=== PATIENT | female | born 1960 | race African-American/Black ===

== ENCOUNTER 2023-12-14 11:31 | Inpatient (IN) | payer MEDICARE, OTHER ==
[~2023-12-14] VITALS: Ht 167.6 cm; Wt 62.1 kg
[2023-12-14] VITALS: BP 178/72; TEMP 98.1; O2SAT 98
[2023-12-14 11:55] LABS: BASOPHILS # (AUTO) 0.1 K/uL (0.0-0.2); BASOPHILS % (AUTO) 1.2 % (0.0-2.0); EOSINOPHILS # (AUTO) 0.4 K/uL (0.0-0.7); EOSINOPHILS % (AUTO) 7.3 % (0.0-6.0); HEMATOCRIT 27 % (33-45); LYMPHOCYTES # (AUTO) 0.9 K/uL (0.8-4.8); LYMPHOCYTES % (AUTO) 17.6 % (20.0-44.0); MEAN CORPUSCULAR HEMOGLOBIN 31 PG (26.0-33.0); MEAN CORPUSCULAR HGB CONC 33 g/dl (31.0-36.0); MEAN CORPUSCULAR VOLUME 94 fL (82-100); MONOCYTES # (AUTO) 0.7 K/uL (0.1-1.30); MONOCYTES % (AUTO) 13.7 % (2.0-12.0); NEUTROPHILS # (AUTO) 3.1 K/uL (1.8-8.9); NEUTROPHILS % (AUTO) 60.2 % (43.0-81.0); PLATELET COUNT (AUTO) 204 K/uL (150-450); RED BLOOD CELL COUNT(AUTO) 2.87 MIL/uL (4.0-5.2); RED CELL DISTRIBUTION WIDTH 17.8 % (11.5-15.0); WHITE BLOOD COUNT (AUTO) 5.1 K/uL (4.3-11.0)
[2023-12-14 12:06] LABS: INR 1.08 (0.91-1.10); PARTIAL THROMBOPLASTIN TIME 32.1 SEC (24.3-34.3); PROTHROMBIN TIME 11.1 SECS (9.2-11.1)
[2023-12-14 12:08] LABS: CALCIUM, SERUM 9.1 mg/dL (8.5-10.1); CARBON DIOXIDE 28 mmol/L (21-32); CHLORIDE 94 mmol/L (98-107); CREATININE 7.3 mg/dL (0.6-1.3); GLUCOSE 138 mg/dL (74-106); POTASSIUM 5.3 mmol/L (3.5-5.1); SODIUM SERUM 132 mmol/L (136-145); UREA NITROGEN, BLOOD 73 mg/dL (7-18)
[2023-12-14] MEDS ORDERED: FOLI0.8T23 PO (12:57)
[2023-12-14] MEDS ORDERED: NIFE-34 PO (12:57)
[2023-12-14] MEDS ORDERED: MAGN400O6 PO (12:57)
[2023-12-14] MEDS ORDERED: HEPA50008 SQ (12:57)
[2023-12-14] MEDS ORDERED: DIVA500T54 PO (12:57)
[2023-12-14] MEDS ORDERED: ACET-868 PO ×2 (12:57)
[2023-12-14] MEDS ORDERED: ALPR0.255 PO (12:57)
[2023-12-14] MEDS ORDERED: BISA10SU11 RC (12:57)
[2023-12-14] MEDS ORDERED: RISP1TAB97 PO (12:57)
[2023-12-14] MEDS ORDERED: CHLO25TA23 PO (12:57)
[2023-12-14] MEDS ORDERED: PANT40TA2 PO (12:57)
[2023-12-14] MEDS ORDERED: NA P133E RC (12:57)
[2023-12-14] MEDS ORDERED: LEVE500T20 PO (12:57)
[2023-12-14] MEDS ORDERED: INSU100I4 SQ (12:57)
[2023-12-14] MEDS ORDERED: CALC-494 PO (12:57)
[2023-12-14] MEDS ORDERED: DOCU100C36 PO (12:57)
[2023-12-14] MEDS ORDERED: POLY17PO4 PO (12:57)
[2023-12-14] MEDS ORDERED: HYDR-4076 PO (12:57)
[2023-12-14] MEDS ORDERED: GLUC1KIT IM (12:57)
[2023-12-14] MEDS ORDERED: MELA3TAB41 PO (12:57)
[2023-12-14] MEDS ORDERED: METO50TA16 PO (12:57)
[2023-12-14] MEDS ORDERED: SEVE800T8 PO (12:57)
[2023-12-14] MEDS ORDERED: Medication Not On Formulary EA (Melatonin 3 MG) PO PRN (13:30)
[2023-12-14] MEDS: hydrALAZINE HCL IV 20 MG VIAL IV ONE (13:30)
[2023-12-14] MEDS ORDERED: ACETAMINOPHEN 325 MG TABLET PO PRN (13:30)
[2023-12-14] MEDS ORDERED: hydrALAZINE HCL IV 20 MG VIAL ONE (13:39)
[2023-12-14] MEDS: BLOOD SUGAR DIAGNOSTIC 1 EACH STRIP IN SCH (16:49)
[2023-12-14] MEDS: hydrALAZINE HCL 25 MG TABLET PO PRN (16:59)
[2023-12-14] MEDS: SEVELAMER CARBONATE 800 MG TABLET PO SCH (18:00)
[2023-12-14 20:00] VITALS: BP 145/68; TEMP 98.4; O2SAT 100
[2023-12-14 20:16] VITALS: BP 145/68; TEMP 98.4; O2SAT 100
[2023-12-14] MEDS: LEVETIRACETAM (250 MG) 250 MG TABLET PO SCH (20:29)
[2023-12-14] MEDS: DOCUSATE SODIUM 100 MG CAPSULE PO SCH (20:29)
[2023-12-14] MEDS: DIVALPROEX SODIUM 500 MG TABLET.DR PO SCH (20:30)
[2023-12-14] MEDS: HEPARIN SODIUM, PORCINE 5000 UNITS/1 ML VIAL IV SCH (20:32)
[2023-12-14] MEDS: HEPARIN SODIUM, PORCINE 5000 UNITS/1 ML VIAL SQ SCH (20:43)
[2023-12-14] MEDS: SIMVASTATIN 20 MG TABLET PO SCH (21:16)
[2023-12-14] MEDS ORDERED: DEXTROSE 50%-WATER 50 ML DISP.SYRIN IV PRN (22:30)
[2023-12-14] MEDS: INSULIN REGULAR, HUMAN 100 UNIT/ML 3 ML VIAL SQ PRN (23:00)
[2023-12-15] VITALS (9 sets, daily range): BP systolic 178–202; BP diastolic 70–85; TEMP 97.5–99; O2SAT 96–100
[2023-12-15] MEDS: BLOOD SUGAR DIAGNOSTIC 1 EACH STRIP IN SCH (06:34)
[2023-12-15 07:29] LABS: INR 1.08 (0.91-1.10); PARTIAL THROMBOPLASTIN TIME 32.9 SEC (24.3-34.3); PROTHROMBIN TIME 11.4 SECS (9.2-11.1)
[2023-12-15 07:45] LABS: BASOPHILS # (AUTO) 0.1 K/uL (0.0-0.2); BASOPHILS % (AUTO) 0.8 % (0.0-2.0); EOSINOPHILS # (AUTO) 0.2 K/uL (0.0-0.7); HEMATOCRIT 28 % (33-45); HEMOGLOBIN 9.1 g/dL (11.5-14.8); LYMPHOCYTES # (AUTO) 0.7 K/uL (0.8-4.8); LYMPHOCYTES % (AUTO) 8.4 % (20.0-44.0); MEAN CORPUSCULAR HEMOGLOBIN 31 PG (26.0-33.0); MEAN CORPUSCULAR HGB CONC 33 g/dl (31.0-36.0); MEAN CORPUSCULAR VOLUME 96 fL (82-100); MONOCYTES # (AUTO) 0.7 K/uL (0.1-1.30); MONOCYTES % (AUTO) 8.9 % (2.0-12.0); NEUTROPHILS # (AUTO) 6.3 K/uL (1.8-8.9); NEUTROPHILS % (AUTO) 79.9 % (43.0-81.0); PLATELET COUNT (AUTO) 232 K/uL (150-450); RED BLOOD CELL COUNT(AUTO) 2.89 MIL/uL (4.0-5.2); RED CELL DISTRIBUTION WIDTH 17.5 % (11.5-15.0); WHITE BLOOD COUNT (AUTO) 7.9 K/uL (4.3-11.0)
[2023-12-15 07:51] LABS: CALCIUM, SERUM 9.5 mg/dL (8.5-10.1); POTASSIUM 5.8 mmol/L (3.5-5.1)
[2023-12-15] MEDS: ASPIRIN 81 MG TAB.CHEW PO SCH (09:24)
[2023-12-15] MEDS: CALCIUM CARBONATE 500 MG TAB.CHEW PO SCH (09:24)
[2023-12-15] MEDS: PANTOPRAZOLE 40 MG TABLET.DR PO SCH (09:24)
[2023-12-15] MEDS: VIT B CMPLX 3/FA/VIT C/BIOTIN 1 TAB TABLET PO SCH (09:24)
[2023-12-15] MEDS ORDERED: LIDOCAINE 1%-EPI 1:200,000 SDV 10 ML VIAL IJ PRN (16:30)
[2023-12-16 00:18] VITALS: BP 192/72; TEMP 98.1; O2SAT 99
[2023-12-16 00:19] VITALS: BP 170/80
[2023-12-16 04:10] VITALS: BP 160/80; TEMP 98.6; O2SAT 99
[2023-12-16 07:43] LABS: BASOPHILS # (AUTO) 0.1 K/uL (0.0-0.2); BASOPHILS % (AUTO) 1.2 % (0.0-2.0); EOSINOPHILS # (AUTO) 0.3 K/uL (0.0-0.7); EOSINOPHILS % (AUTO) 5.3 % (0.0-6.0); HEMATOCRIT 27 % (33-45); HEMOGLOBIN 9.2 g/dL (11.5-14.8); LYMPHOCYTES # (AUTO) 0.7 K/uL (0.8-4.8); LYMPHOCYTES % (AUTO) 13.4 % (20.0-44.0); MEAN CORPUSCULAR HEMOGLOBIN 32 PG (26.0-33.0); MEAN CORPUSCULAR HGB CONC 34 g/dl (31.0-36.0); MEAN CORPUSCULAR VOLUME 96 fL (82-100); MONOCYTES # (AUTO) 0.4 K/uL (0.1-1.30); MONOCYTES % (AUTO) 8.5 % (2.0-12.0); NEUTROPHILS # (AUTO) 3.6 K/uL (1.8-8.9); NEUTROPHILS % (AUTO) 71.6 % (43.0-81.0); PLATELET COUNT (AUTO) 215 K/uL (150-450); RED BLOOD CELL COUNT(AUTO) 2.84 MIL/uL (4.0-5.2); RED CELL DISTRIBUTION WIDTH 17.8 % (11.5-15.0)
[2023-12-16 07:44] LABS: CALCIUM, SERUM 8.7 mg/dL (8.5-10.1)
[2023-12-16 08:12] LABS: HEPATITIS B SURFACE AB Reactive (.)
[2023-12-16 12:00] VITALS: BP 192/84; TEMP 98.8; O2SAT 99
[2023-12-16 16:00] VITALS: BP 173/63; TEMP 98.8; O2SAT 96
[2023-12-16] MEDS ORDERED: HEPARIN INFUSION/D5W 500 ML IV PRN (16:00)
[2023-12-16] MEDS: APIXABAN 2.5 MG TABLET PO SCH (17:02)
[2023-12-16 17:09] LABS: INR 1.13 (0.91-1.10); PROTHROMBIN TIME 11.9 SECS (9.2-11.1)
[2023-12-16 20:00] VITALS: BP 202/84; TEMP 99; O2SAT 96
[2023-12-17] VITALS (7 sets, daily range): BP systolic 179–200; BP diastolic 71–90; TEMP 97.7–98.6; O2SAT 93–96
[2023-12-17 06:52] LABS: BASOPHILS # (AUTO) 0.1 K/uL (0.0-0.2); BASOPHILS % (AUTO) 1.4 % (0.0-2.0); EOSINOPHILS # (AUTO) 0.4 K/uL (0.0-0.7); EOSINOPHILS % (AUTO) 7.1 % (0.0-6.0); HEMATOCRIT 26 % (33-45); HEMOGLOBIN 8.7 g/dL (11.5-14.8); LYMPHOCYTES # (AUTO) 0.9 K/uL (0.8-4.8); LYMPHOCYTES % (AUTO) 17.6 % (20.0-44.0); MEAN CORPUSCULAR HEMOGLOBIN 32 PG (26.0-33.0); MEAN CORPUSCULAR HGB CONC 33 g/dl (31.0-36.0); MEAN CORPUSCULAR VOLUME 96 fL (82-100); MONOCYTES # (AUTO) 0.4 K/uL (0.1-1.30); MONOCYTES % (AUTO) 7.8 % (2.0-12.0); NEUTROPHILS # (AUTO) 3.3 K/uL (1.8-8.9); NEUTROPHILS % (AUTO) 66.1 % (43.0-81.0); PLATELET COUNT (AUTO) 203 K/uL (150-450); RED BLOOD CELL COUNT(AUTO) 2.75 MIL/uL (4.0-5.2); RED CELL DISTRIBUTION WIDTH 18.2 % (11.5-15.0)
[2023-12-17 07:23] LABS: CALCIUM, SERUM 8.7 mg/dL (8.5-10.1); CREATININE 6.4 mg/dL (0.6-1.3); POTASSIUM 5.2 mmol/L (3.5-5.1)
[2023-12-17] MEDS: LORAZEPAM 1 MG TABLET PO STA (19:21)
[2023-12-17] MEDS: METOPROLOL TARTRATE INJ 5 MG/5 ML AMPUL IVP ONE ×2 (20:38→22:05)
[2023-12-18] VITALS (10 sets, daily range): BP systolic 151–199; BP diastolic 60–96; TEMP 97.5–99.1; O2SAT 94–100
[2023-12-18] MEDS: hydrALAZINE HCL IV 20 MG VIAL IV ONE ×3 (03:49→18:46)
[2023-12-18 07:04] LABS: BASOPHILS # (AUTO) 0.1 K/uL (0.0-0.2); EOSINOPHILS # (AUTO) 0.3 K/uL (0.0-0.7); EOSINOPHILS % (AUTO) 6.1 % (0.0-6.0); HEMATOCRIT 27 % (33-45); LYMPHOCYTES # (AUTO) 0.7 K/uL (0.8-4.8); LYMPHOCYTES % (AUTO) 15.1 % (20.0-44.0); MEAN CORPUSCULAR HEMOGLOBIN 32 PG (26.0-33.0); MEAN CORPUSCULAR HGB CONC 34 g/dl (31.0-36.0); MEAN CORPUSCULAR VOLUME 95 fL (82-100); MONOCYTES # (AUTO) 0.4 K/uL (0.1-1.30); MONOCYTES % (AUTO) 7.4 % (2.0-12.0); NEUTROPHILS # (AUTO) 3.4 K/uL (1.8-8.9); NEUTROPHILS % (AUTO) 69.4 % (43.0-81.0); PLATELET COUNT (AUTO) 213 K/uL (150-450); RED CELL DISTRIBUTION WIDTH 18.2 % (11.5-15.0); WHITE BLOOD COUNT (AUTO) 4.9 K/uL (4.3-11.0)
[2023-12-18 07:19] LABS: CALCIUM, SERUM 8.8 mg/dL (8.5-10.1); CREATININE 5.3 mg/dL (0.6-1.3); POTASSIUM 4.4 mmol/L (3.5-5.1)
[2023-12-18] MEDS ORDERED: DIVA500T2 PO (12:19)
[2023-12-18] MEDS ORDERED: SEVE800T7 PO (12:19)
[2023-12-18] MEDS ORDERED: PANT40TA49 PO (12:19)
[2023-12-18] MEDS ORDERED: DOCU100C36 PO (12:19)
[2023-12-18] MEDS ORDERED: APIX2.5T PO (12:19)
[2023-12-18] MEDS ORDERED: LEVE250T2 PO (12:19)
[2023-12-18] MEDS ORDERED: CALC500T63 PO (12:19)
[2023-12-18] MEDS ORDERED: SIMV-46 PO (12:19)
[2023-12-18] MEDS ORDERED: VIT1TABL44 PO (12:19)
[2023-12-18] MEDS ORDERED: ASPI-1169 PO (12:19)
[2023-12-19] VITALS (10 sets, daily range): BP systolic 170–193; BP diastolic 69–81; TEMP 97.7–98.8; O2SAT 95–98
[2023-12-19] MEDS: LOSARTAN POTASSIUM 50 MG TABLET PO SCH (07:00)
[2023-12-19 07:19] LABS: BASOPHILS # (AUTO) 0.1 K/uL (0.0-0.2); BASOPHILS % (AUTO) 2.3 % (0.0-2.0); CALCIUM, SERUM 9.1 mg/dL (8.5-10.1); CREATININE 6.8 mg/dL (0.6-1.3); EOSINOPHILS # (AUTO) 0.5 K/uL (0.0-0.7); EOSINOPHILS % (AUTO) 7.4 % (0.0-6.0); HEMATOCRIT 25 % (33-45); HEMOGLOBIN 8.7 g/dL (11.5-14.8); LYMPHOCYTES # (AUTO) 1.1 K/uL (0.8-4.8); LYMPHOCYTES % (AUTO) 18.6 % (20.0-44.0); MEAN CORPUSCULAR HEMOGLOBIN 33 PG (26.0-33.0); MEAN CORPUSCULAR HGB CONC 34 g/dl (31.0-36.0); MEAN CORPUSCULAR VOLUME 96 fL (82-100); MONOCYTES # (AUTO) 0.4 K/uL (0.1-1.30); MONOCYTES % (AUTO) 6.3 % (2.0-12.0); NEUTROPHILS % (AUTO) 65.4 % (43.0-81.0); PLATELET COUNT (AUTO) 176 K/uL (150-450); POTASSIUM 5.8 mmol/L (3.5-5.1); RED BLOOD CELL COUNT(AUTO) 2.64 MIL/uL (4.0-5.2); WHITE BLOOD COUNT (AUTO) 6.1 K/uL (4.3-11.0)
[2023-12-19] MEDS ORDERED: LOSARTAN POTASSIUM 50 MG TABLET PO ONE (08:00)
[2023-12-19] MEDS: hydrALAZINE HCL 25 MG TABLET PO SCH (08:49)
[2023-12-19] MEDS: AMLODIPINE BESYLATE 5 MG TABLET PO SCH (08:49)
[2023-12-19] MEDS ORDERED: HYDR-4076 PO (10:07)
[2023-12-19] MEDS: POLYETHYLENE GLYCOL 3350 17 GM POWD.PACK PO PRN (11:28)
[2023-12-19] MEDS: LIDOCAINE 1%-EPI 1:200,000 SDV 10 ML VIAL IJ PRN (15:32)
[2023-12-19] MEDS: METOPROLOL TARTRATE 50 MG TABLET PO SCH (17:58)
[2023-12-19] MEDS: hydrALAZINE HCL IV 20 MG VIAL IV PRN (18:21)
[2023-12-20] MEDS ORDERED: NIFEDIPINE XL 60 MG TAB.ER.24 PO SCH (09:00)
== END 2023-12-19 18:55 | DRG 100 ==
LOC: ER 11:36 → TELE 15:06
PROVIDERS: ADMIT Nurse Practitioner Acute Care; ATTEND Nurse Practitioner Acute Care
PROC: 5A1D70Z Performance of Urinary Filtration, Intermittent, Less than 6 Hours Per Day (ICD-10-PCS; principal; 2023-12-15)
DX: G40.909 Epilepsy, unspecified, not intractable, without status epilepticus (principal); N18.6 End stage renal disease; I13.2 Hypertensive heart and chronic kidney disease with heart failure and with stage 5 chronic kidney disease, or end stage renal disease; I82.C11 Acute embolism and thrombosis of right internal jugular vein; D68.69 Other thrombophilia; E87.1 Hypo-osmolality and hyponatremia; E87.5 Hyperkalemia; Z99.2 Dependence on renal dialysis; E11.22 Type 2 diabetes mellitus with diabetic chronic kidney disease; E78.5 Hyperlipidemia, unspecified; I16.0 Hypertensive urgency; J44.9 Chronic obstructive pulmonary disease, unspecified; M89.8X9 Other specified disorders of bone, unspecified site; Z74.01 Bed confinement status; Z86.73 Personal history of transient ischemic attack (TIA), and cerebral infarction without residual deficits; Z88.0 Allergy status to penicillin; D63.1 Anemia in chronic kidney disease; F03.90 Unspecified dementia, unspecified severity, without behavioral disturbance, psychotic disturbance, mood disturbance, and anxiety; Z88.1 Allergy status to other antibiotic agents; I50.9 Heart failure, unspecified
CPT/HCPCS: 36415; 70450-TC; 71045-TC; 73030-TC; 80048-TC; 80061-TC; 80164-TC; 80177; 82962-TC; 84443-TC; 84484-TC; 85025-TC; 85610-TC; 85730-TC; 86706; 87081-TC; 87340; 90935-TC; 92507-TC; 92521; 92526; 92611-TC; 93880-TC; 94760-TC; 94799-TC; 97110-TC; 97530-TC; 97535-TC; G0378; J0360; J1644; J1815; J3490; J7030

== ENCOUNTER 2024-02-11 10:46 | Emergency (ER) | payer MEDICARE, OTHER ==
[~2024-02-11] VITALS: Ht 167.6 cm; Wt 59.0 kg
[~2024-02-11 10:46] MED LIST: ACET-868 PO; ALPR0.255 PO; APIX2.5T PO; ASPI-1169 PO; BISA10SU11 RC; CALC500T63 PO; CHLO25TA23 PO; DIVA500T2 PO; DOCU100C36 PO; GLUC1KIT IM; HEPA50008 SQ; HYDR-4076 PO; INSU100I4 SQ; LEVE250T2 PO; MAGN400O6 PO; MELA3TAB41 PO; METO50TA16 PO; NA P133E RC; NIFE-34 PO; PANT40TA49 PO; POLY17PO4 PO; SEVE800T7 PO; SIMV-46 PO; VIT1TABL44 PO
[2024-02-11 15:09] VITALS: BP 154/63; TEMP 98; O2SAT 97
== END 2024-02-11 15:09 ==
LOC: ER 10:52
DX: Z45.2 Encounter for adjustment and management of vascular access device (principal); G40.909 Epilepsy, unspecified, not intractable, without status epilepticus; E78.5 Hyperlipidemia, unspecified; J44.9 Chronic obstructive pulmonary disease, unspecified; K21.9 Gastro-esophageal reflux disease without esophagitis; I13.2 Hypertensive heart and chronic kidney disease with heart failure and with stage 5 chronic kidney disease, or end stage renal disease; E11.22 Type 2 diabetes mellitus with diabetic chronic kidney disease; N18.6 End stage renal disease; I50.9 Heart failure, unspecified; M19.90 Unspecified osteoarthritis, unspecified site; F41.9 Anxiety disorder, unspecified; Z88.0 Allergy status to penicillin; Z88.8 Allergy status to other drugs, medicaments and biological substances

== ENCOUNTER 2024-10-10 13:09 | Inpatient (IN) | payer MEDICARE, OTHER ==
[~2024-10-10] VITALS: Ht 162.6 cm; Wt 68.5 kg
[2024-10-10] MEDS ORDERED: LEVOFLOXACIN 750 MG /D5W 150ML PIGGYBACK IV ONE (14:00)
[2024-10-10] MEDS ORDERED: LORAZEPAM INJ 2 MG/ML VIAL ONE ×2 (14:10→15:17)
[2024-10-10] MEDS: LORAZEPAM INJ 2 MG/ML VIAL IV ONE ×3 (14:18→17:30)
[2024-10-10 14:19] LABS: BASOPHILS # (AUTO) 0.1 K/uL (0.0-0.2); BASOPHILS % (AUTO) 0.9 % (0.0-2.0); EOSINOPHILS # (AUTO) 0.4 K/uL (0.0-0.7); EOSINOPHILS % (AUTO) 5.6 % (0.0-6.0); HEMATOCRIT 26 % (33-45); HEMOGLOBIN 8.7 g/dL (11.5-14.8); LYMPHOCYTES # (AUTO) 1.3 K/uL (0.8-4.8); MEAN CORPUSCULAR HEMOGLOBIN 31 PG (26.0-33.0); MEAN CORPUSCULAR HGB CONC 34 g/dl (31.0-36.0); MEAN CORPUSCULAR VOLUME 91 fL (82-100); MONOCYTES # (AUTO) 0.5 K/uL (0.1-1.30); MONOCYTES % (AUTO) 7.5 % (2.0-12.0); NEUTROPHILS # (AUTO) 4.6 K/uL (1.8-8.9); PLATELET COUNT (AUTO) 165 K/uL (150-450); RED BLOOD CELL COUNT(AUTO) 2.79 MIL/uL (4.0-5.2); RED CELL DISTRIBUTION WIDTH 16.6 % (11.5-15.0); WHITE BLOOD COUNT (AUTO) 6.9 K/uL (4.3-11.0)
[2024-10-10] MEDS: IV NS 0.9% 1,000 ML BAG IV ONE (14:19)
[2024-10-10 14:20] LABS: CALCIUM, SERUM 8.8 mg/dL (8.5-10.1); CARBON DIOXIDE 33 mmol/L (21-32); CHLORIDE 97 mmol/L (98-107); CREATININE 6.5 mg/dL (0.6-1.3); GLUCOSE 146 mg/dL (74-106); POTASSIUM 4.1 mmol/L (3.5-5.1); SODIUM SERUM 141 mmol/L (136-145); UREA NITROGEN, BLOOD 36 mg/dL (7-18)
[2024-10-10 14:21] LABS: SERUM AMMONIA 6 umol/L (11-32)
[2024-10-10 14:26] LABS: INR 1.2 (0.91-1.10); PARTIAL THROMBOPLASTIN TIME 27.6 SEC (24.3-34.3); PROTHROMBIN TIME 12.6 SECS (9.2-11.1)
[2024-10-10 14:27] LABS: ALANINE AMINOTRANSFERASE 8 U/L (12-78); ALBUMIN 3.5 g/dL (3.4-5.0); ALCOHOL, BLOOD < 3 mg/dL (0-10); ALKALINE PHOSPHATASE 92 U/L (46-116); ASPARTATE AMINOTRANSFERASE 18 U/L (15-37); BILIRUBIN,DIRECT 0.2 mg/dL (0.0-0.2); BILIRUBIN,TOTAL 0.5 mg/dL (0.2-1.0); TOTAL PROTEIN, SERUM 8.4 g/dL (6.4-8.2)
[2024-10-10] MEDS ORDERED: MORPHINE SULFATE INJ 2 MG/ML DISP.SYRIN IV PRN (14:30)
[2024-10-10] MEDS ORDERED: hydrALAZINE HCL IV 20 MG VIAL IV PRN (14:30)
[2024-10-10] MEDS ORDERED: ONDANSETRON HCL/PF 4 MG/2 ML VIAL IVP PRN (14:30)
[2024-10-10] MEDS ORDERED: DEXTROSE 50%-WATER 50 ML DISP.SYRIN IV PRN (14:30)
[2024-10-10 14:31] LABS: LACTIC ACID 2.8 mmol/L (0.4-2.0)
[2024-10-10] MEDS: LEVOFLOXACIN 750 MG /D5W 150ML 750 MG in PREMIX 1 EA IV ONE (14:35)
[2024-10-10] MEDS ORDERED: HALOPERIDOL LACTATE INJ 5 MG/ML VIAL ONE (14:45)
[2024-10-10 14:54] LABS: ACETAMINOPHEN <10 ug/ml (10-30); SALICYLATE 2.3 mg/dL (2.8-20.0)
[2024-10-10] MEDS: HALOPERIDOL LACTATE INJ 5 MG/ML VIAL IM ONE (14:54)
[2024-10-10] MEDS ORDERED: LABETALOL 20 MG/4 ML VIAL ONE (15:02)
[2024-10-10] MEDS: LABETALOL 20 MG/4 ML VIAL IV ONE (15:06)
[2024-10-10] MEDS: diphenhydrAMINE HCL 50 MG/ML VIAL IV ONE (16:07)
[2024-10-10 16:30] VITALS: BP 189/84; TEMP 98.4; O2SAT 94
[2024-10-10] MEDS: VANCOMYCIN 1 GM in IV D5W 250 ML IV ONE ×2 (17:00→21:32)
[2024-10-10] MEDS: MEROPENEM 500 MG in IV NS 0.9% 50 ML IV SCH (17:41)
[2024-10-10] MEDS: INSULIN REGULAR, HUMAN 100 UNIT/ML 3 ML VIAL SQ PRN (17:47)
[2024-10-10] MEDS: BLOOD SUGAR DIAGNOSTIC 1 EACH STRIP VI SCH (17:47)
[2024-10-10] MEDS: APIXABAN 2.5 MG TABLET PO SCH (18:44)
[2024-10-10 20:00] VITALS: BP 151/89; TEMP 97.8; O2SAT 100
[2024-10-10] MEDS ORDERED: HEPARIN SODIUM, PORCINE 5000 UNITS/1 ML VIAL SQ SCH (21:00)
[2024-10-11] VITALS: BP 162/85; TEMP 98.1; O2SAT 100
[2024-10-11 00:30] VITALS: BP 157/79; TEMP 98.1; O2SAT 100
[2024-10-11 04:00] VITALS: BP 120/89; TEMP 97.8; O2SAT 100
[2024-10-11] MEDS ORDERED: VANCOMYCIN 500 MG in IV D5W 100 ML IV PRN (06:00)
[2024-10-11] MEDS: ACETAMINOPHEN 325 MG TABLET PO PRN (06:28)
[2024-10-11 06:45] LABS: BILIRUBIN,TOTAL 0.6 mg/dL (0.2-1.0); CALCIUM, SERUM 8.9 mg/dL (8.5-10.1); CREATININE 3.9 mg/dL (0.6-1.3); MAGNESIUM 2.2 mg/dL (1.8-2.4); PHOSPHORUS 2.6 mg/dL (2.5-4.9); POTASSIUM 3.9 mmol/L (3.5-5.1)
[2024-10-11 07:23] LABS: BASOPHILS # (AUTO) 0.1 K/uL (0.0-0.2); BASOPHILS % (AUTO) 1.2 % (0.0-2.0); EOSINOPHILS # (AUTO) 0.5 K/uL (0.0-0.7); EOSINOPHILS % (AUTO) 7.6 % (0.0-6.0); HEMATOCRIT 27 % (33-45); HEMOGLOBIN 8.5 g/dL (11.5-14.8); LYMPHOCYTES # (AUTO) 1.4 K/uL (0.8-4.8); LYMPHOCYTES % (AUTO) 22.1 % (20.0-44.0); MEAN CORPUSCULAR HEMOGLOBIN 30 PG (26.0-33.0); MEAN CORPUSCULAR HGB CONC 32 g/dl (31.0-36.0); MEAN CORPUSCULAR VOLUME 94 fL (82-100); MONOCYTES # (AUTO) 0.6 K/uL (0.1-1.30); MONOCYTES % (AUTO) 9.7 % (2.0-12.0); NEUTROPHILS # (AUTO) 3.7 K/uL (1.8-8.9); NEUTROPHILS % (AUTO) 59.4 % (43.0-81.0); PLATELET COUNT (AUTO) 188 K/uL (150-450); RED BLOOD CELL COUNT(AUTO) 2.82 MIL/uL (4.0-5.2); RED CELL DISTRIBUTION WIDTH 16.5 % (11.5-15.0); WHITE BLOOD COUNT (AUTO) 6.2 K/uL (4.3-11.0)
[2024-10-11 07:30] VITALS: BP 132/97; TEMP 97.3; O2SAT 98
[2024-10-11] MEDS: *INSULIN REGULAR(HUMULIN R)HUM 100 UNIT/ML VIAL SQ PRN (11:36)
[2024-10-11] MEDS ORDERED: NA P133E RC (14:25)
[2024-10-11] MEDS ORDERED: SEVE800T7 PO (14:25)
[2024-10-11] MEDS ORDERED: MAGN400O6 PO (14:25)
[2024-10-11] MEDS ORDERED: GLUC1KIT IM (14:25)
[2024-10-11] MEDS ORDERED: HYDR-4077 PO (14:25)
[2024-10-11] MEDS ORDERED: PANT40TA49 PO (14:25)
[2024-10-11] MEDS ORDERED: SIMV-49 PO (14:25)
[2024-10-11] MEDS ORDERED: DIVA-78 PO (14:25)
[2024-10-11] MEDS ORDERED: INSU100V39 SQ (14:25)
[2024-10-11] MEDS ORDERED: ACET325T53 PO (14:25)
[2024-10-11] MEDS ORDERED: LEVE500T20 PO (14:25)
[2024-10-11] MEDS ORDERED: CINA30TA2 PO (14:25)
[2024-10-11] MEDS ORDERED: APIX2.5T PO (14:25)
[2024-10-11] MEDS ORDERED: RISP1TAB97 PO (14:25)
[2024-10-11] MEDS ORDERED: FOLI0.8T23 PO (14:25)
[2024-10-11 16:03] VITALS: BP 167/85; TEMP 98.4; O2SAT 99
[2024-10-11 20:00] VITALS: BP 146/69; TEMP 98.4; O2SAT 100
[2024-10-11] MEDS: LORAZEPAM INJ 2 MG/ML VIAL IM ONE (21:12)
[2024-10-12] VITALS (7 sets, daily range): BP systolic 108–156; BP diastolic 58–80; TEMP 97.9–98.6; O2SAT 94–100
[2024-10-13] VITALS: BP 150/64; TEMP 98.4; O2SAT 100; O2SAT 99
[2024-10-13 04:00] VITALS: BP 150/69; TEMP 98.2; O2SAT 99
[2024-10-13 08:00] VITALS: BP 172/80; TEMP 98.4; O2SAT 98
== END 2024-10-13 10:30 | DRG 280 ==
LOC: ER 13:16 → TELE 15:48
PROVIDERS: ADMIT Internal Medicine; ATTEND Nurse Practitioner Acute Care
PROC: 5A1D70Z Performance of Urinary Filtration, Intermittent, Less than 6 Hours Per Day (ICD-10-PCS; principal; 2024-10-10)
DX: I13.2 Hypertensive heart and chronic kidney disease with heart failure and with stage 5 chronic kidney disease, or end stage renal disease (principal); G93.41 Metabolic encephalopathy; I21.A1 Myocardial infarction type 2; N18.6 End stage renal disease; I50.31 Acute diastolic (congestive) heart failure; E87.20 Acidosis, unspecified; I16.0 Hypertensive urgency; E11.22 Type 2 diabetes mellitus with diabetic chronic kidney disease; E78.5 Hyperlipidemia, unspecified; G40.909 Epilepsy, unspecified, not intractable, without status epilepticus; J44.9 Chronic obstructive pulmonary disease, unspecified; Z86.718 Personal history of other venous thrombosis and embolism; Z86.73 Personal history of transient ischemic attack (TIA), and cerebral infarction without residual deficits; Z88.0 Allergy status to penicillin; Z99.2 Dependence on renal dialysis; D63.8 Anemia in other chronic diseases classified elsewhere; F03.90 Unspecified dementia, unspecified severity, without behavioral disturbance, psychotic disturbance, mood disturbance, and anxiety; E83.9 Disorder of mineral metabolism, unspecified; Z79.01 Long term (current) use of anticoagulants; Z79.4 Long term (current) use of insulin; Z20.822 Contact with and (suspected) exposure to COVID-19
CPT/HCPCS: 36415; 70450-TC; 71045-TC; 80048-TC; 80053-TC; 80076-TC; 80202-TC; 82140-TC; 82962-TC; 83605-TC; 83735-TC; 83880; 84100-TC; 84443-TC; 84484-TC; 85025-TC; 85730-TC; 87040-TC; 87081-TC; 90935-TC; 92526; 92611-TC; 93307-TC; 93880-TC; A4216; A4223; A6403; G0378; G0480; J1630; J1815; J1956; J2060; J2185; J3370; J3490; J7050; J7060